=== PATIENT | female | born 1960 | race Caucasian/White ===

== ENCOUNTER 2018-01-03 10:04 | Outpatient (CLI) | payer OTHER | END 2018-01-03 10:05 | disposition home or self-care (01) | LOC: CP 10:04 | PROVIDERS: ATTEND Internal Medicine Critical Care Medicine | DX: J45.909 Unspecified asthma, uncomplicated (principal) | CPT/HCPCS: 94060; 94727; 94729 ==

== ENCOUNTER 2018-11-01 14:05 | Outpatient (CLI) | payer OTHER ==
--- NOTE | 2018-11-01 15:20 | RAD ---
LEFT ELBOW 2 VIEWS: Date: 11/01/18 HISTORY: Disability exam, left elbow pain. FINDINGS/IMPRESSION: No fracture, dislocation, or bony destruction seen. No joint effusion or significant arthritic change s are identified. POS: [facility]
--- NOTE | 2018-11-01 15:25 | RAD ---
PA AND LATERAL VIEWS CHEST: HISTORY: Disability exam. COMPARISON: Comparison is made with the exam of 07/31/2017. FINDINGS: The heart size is normal. The lungs are expanded without focal areas of consolidation, pneumothorace s, or pleural effusions. There are degenerative changes in the spine. IMPRESSION: No acute process. POS: [facility]
== END 2018-11-01 14:06 | disposition home or self-care (01) ==
LOC: BICRAD 14:05
PROVIDERS: ATTEND Internal Medicine
DX: Z02.71 Encounter for disability determination (principal)
CPT/HCPCS: 71046